=== PATIENT | female | born 1995 | race Caucasian/White ===

== ENCOUNTER 2023-10-29 12:23 | Inpatient (IN) | payer BC ==
[2023-10-29] MEDS ORDERED: Docusate 100 MG CAP PO PRN (12:24)
[2023-10-29] MEDS ORDERED: Misoprostol 200 MCG TAB PR PRN (12:24)
[2023-10-29] MEDS ORDERED: Ondansetron PF 4 MG/2 ML Vial IVP PRN (12:24)
[2023-10-29] MEDS ORDERED: Ibuprofen 800 MG TAB PO PRN (12:24)
[2023-10-29] MEDS ORDERED: Carboprost 250 MCG/ML AMP IM PRN (12:24)
[2023-10-29] MEDS ORDERED: Promethazine HCl 25 MG/ML VIAL IM PRN (12:24)
[2023-10-29] MEDS ORDERED: Zolpidem Tartrate 5 MG TAB PO PRN (12:24)
[2023-10-29] MEDS ORDERED: HYDROcodone/Acetaminophen 5/325 mg Tablet PO PRN ×2 (12:24)
[2023-10-29] MEDS ORDERED: hydrALAZINE 20 MG/ML VIAL SLOW IVP PRN (12:24)
[2023-10-29] MEDS ORDERED: Acetaminophen 500 MG TAB PO PRN (12:24)
[2023-10-29] MEDS ORDERED: Diphenoxylate HCl/Atropine Tablet PO PRN ×2 (12:24)
[2023-10-29] MEDS ORDERED: Methylergonovine 0.2 MG/ML VIAL IM PRN (12:24)
[2023-10-29] MEDS ORDERED: Lidocaine 1% (PF) 30 ML VIAL SC PRN (12:24)
[2023-10-29] MEDS ORDERED: Oxytocin 30 units/NS 500 ML 500 ML IV SCH ×3 (12:30)
[2023-10-29] MEDS ORDERED: Lactated Ringer's 1,000 ML IV SCH (12:30)
[2023-10-29 13:13] VITALS: BMI 36.9
[2023-10-29 14:54] LABS: Hematocrit 33.5 % (34.9-44.5); Hemoglobin 11.1 g/dL (12.0-15.5); Mean Corpuscular HGB CONC 33.1 g/dL (32.0-36.0); Mean Corpuscular Hemoglobin 28.1 pg (27.0-33.0); Mean Corpuscular Volume 84.8 fl (81.6-98.3); Mean Platelet Volume 12.1 fl (7.4-10.4); Platelet Count 221 10x3/uL (150-450); RBC Distribution Width 12.9 % (11.5-14.5); Red Blood Cell (RBC) Count 3.95 10x6/uL (3.90-5.03); White Blood Cell (WBC) Count 11.4 10x3/uL (3.5-10.5)
[2023-10-29 15:35] LABS: HIV (1/2) Antibody/Antigen Non-Reactive (NonReactive); HIV 1/2 INDEX 0.11 S/CO (<1.00)
[2023-10-29 15:36] LABS: Syphilis Antibody Nonreactive (Nonreactive); Syphilis Antibody Index 0.04 S/CO (<1.00 Non-Reactive)
[2023-10-29 15:38] LABS: HBSAg Index 0.17 S/CO (0-0.99); Hep B Surf Ag - L&D Non-Reactive S/CO (NonReactive)
[2023-10-29 16:34] LABS: SARS-CoV-2 NAA Rapid Test Not Detected (NotDetected)
[2023-10-30] MEDS: fentaNYL 50 mcg/mL 1 mL Vial SLOW IVP PRN ×2 (03:57→06:17)
[2023-10-30] MEDS ORDERED: Misoprostol 200 MCG TAB VAG PRN (09:52)
[2023-10-30] MEDS ORDERED: Milk Of Magnesia 30 ML UDCUP PO PRN (09:52)
[2023-10-30] MEDS ORDERED: Benzocaine-Menthol 82.5 ML CAN TOP PRN (09:52)
[2023-10-30] MEDS ORDERED: Bisacodyl 10 MG SUPP PR PRN (09:52)
[2023-10-30] MEDS ORDERED: Preparation H Ointment 28 GM TUBE PR PRN (09:52)
[2023-10-30] MEDS ORDERED: HYDROcodone/Acetaminophen 5/325 mg Tablet PO PRN (09:52)
[2023-10-30] MEDS ORDERED: Lanolin Ointment 7 GM TUBE TOP PRN (09:52)
[2023-10-30] MEDS ORDERED: Ondansetron PF 4 MG/2 ML Vial IVP PRN (09:52)
[2023-10-30] MEDS ORDERED: hydrALAZINE 20 MG/ML VIAL SLOW IVP PRN (09:52)
[2023-10-30] MEDS ORDERED: diphenhydrAMINE 25 MG CAP PO PRN (09:52)
[2023-10-30] MEDS ORDERED: Boostrix 0.5 ML (Tdap) VIAL (>/=7 yrs of age) IM ONE (09:52)
[2023-10-30] MEDS ORDERED: Oxytocin 30 units/NS 500 ML 500 ML IV SCH (10:00)
[2023-10-30] MEDS: Ibuprofen 800 MG TAB PO SCH ×2 (14:28→21:06)
[2023-10-30] MEDS: HYDROcodone/Acetaminophen 5/325 mg Tablet PO PRN ×2 (16:26→21:08)
[2023-10-30] MEDS: Ferrous Sulfate 325 MG TAB PO SCH (17:56)
[2023-10-30] MEDS: Docusate 100 MG CAP PO SCH (21:07)
[2023-10-31] MEDS: HYDROcodone/Acetaminophen 5/325 mg Tablet PO PRN ×3 (01:01→15:23)
[2023-10-31 03:20] LABS: Hematocrit 27.6 % (34.9-44.5); Hemoglobin 8.8 g/dL (12.0-15.5); Mean Corpuscular HGB CONC 31.9 g/dL (32.0-36.0); Mean Corpuscular Hemoglobin 27.2 pg (27.0-33.0); Mean Corpuscular Volume 85.4 fl (81.6-98.3); Mean Platelet Volume 11.9 fl (7.4-10.4); Platelet Count 205 10x3/uL (150-450); RBC Distribution Width 13.2 % (11.5-14.5); Red Blood Cell (RBC) Count 3.23 10x6/uL (3.90-5.03); White Blood Cell (WBC) Count 17.2 10x3/uL (3.5-10.5)
[2023-10-31] MEDS: Ibuprofen 800 MG TAB PO SCH ×2 (05:12→13:02)
[2023-10-31 07:40] VITALS: BP 113/56; TEMP 98
[2023-10-31] MEDS ORDERED: Prenatal Vitamin 1 TAB PO SCH (09:00)
[2023-10-31] MEDS: Ferrous Sulfate 325 MG TAB PO SCH (13:03)
[2023-10-31] MEDS: Docusate 100 MG CAP PO SCH (13:03)
== END 2023-10-31 17:27 | disposition home or self-care (01) | DRG 807 ==
LOC: CSHLD 12:23 → CSHPED 10-30 11:44
PROVIDERS: ADMIT Obstetrics & Gynecology; ATTEND Obstetrics & Gynecology
PROC: 10D07Z6 Extraction of Products of Conception, Vacuum, Via Natural or Artificial Opening (ICD-10-PCS; principal; 2023-10-30)
PROC: 10907ZC Drainage of Amniotic Fluid, Therapeutic from Products of Conception, Via Natural or Artificial Opening (ICD-10-PCS; 2023-10-30)
PROC: 0W8NXZZ Division of Female Perineum, External Approach (ICD-10-PCS; 2023-10-30)
DX: O99.02 Anemia complicating childbirth (principal); Z37.0 Single live birth; D64.9 Anemia, unspecified; Z3A.38 38 weeks gestation of pregnancy; O76 Abnormality in fetal heart rate and rhythm complicating labor and delivery; O70.1 Second degree perineal laceration during delivery
CPT/HCPCS: 36416; 85027; 86780; 86850; 86900; 86901; 87340; 87389; J2405; J2550; J2590; J3010; U0002